=== PATIENT | female | born 1960 | race Caucasian/White ===

== ENCOUNTER → 2020-03-05 | Outpatient (CLI) | payer MEDICARE, MEDICAID ==
[~2020-03-05] MED LIST: AMAN100T PO; COPA1INJ SC; FAMO20TA PO; LISI-538 PO; LORA-674 PO; MIRT1TAB16 PO; OMEP10CASR PO; PRAM0.754 PO; SIMV40TA20 PO
== END ==
LOC: M LABSMTC 09:56
PROVIDERS: ATTEND Anesthesiology
DX: Z01.818 Encounter for other preprocedural examination (principal); Z11.59 Encounter for screening for other viral diseases
CPT/HCPCS: C9803; U0002

== ENCOUNTER 2020-03-07 06:04 | Day surgery (SDC) | payer MEDICARE, MEDICAID ==
[~2020-03-07] VITALS: Ht 165.1 cm; Wt 73.7 kg
[~2020-03-07 06:04] MED LIST changes: +ACETAMINOPHEN 325 MG TAB PO PRN
[2020-03-07] MEDS ORDERED: LIDOCAINE 3.5 % 1ML OPHTH TOPICAL GEL OU ONE (07:00)
[2020-03-07] MEDS ORDERED: PROPARACAINE 0.5% OPHTH SOL 15ML OD PRN (07:01)
[2020-03-07] MEDS ORDERED: MIDAZOLAM INJ 2MG/2ML VIAL (J2250 PER 1MG) As Ordered ONE (07:08)
[2020-03-07] MEDS ORDERED: fentaNYL 100 MCG/2 ML INJECTION (J3010) As Ordered ONE (07:08)
[2020-03-07] MEDS ORDERED: GENTAMICIN SULF 80MG/2ML VIAL As Ordered ONE (07:09)
[2020-03-07] MEDS ORDERED: TOBRADEX OPHTH OINT 3.5 GM As Ordered ONE (07:09)
[2020-03-07] MEDS ORDERED: LIDOCAINE 1% SDV 5ML VIAL As Ordered ONE (07:09)
[2020-03-07] MEDS ORDERED: POVIDONE-IODINE 5% OPHTH PREP SOL 30ML As Ordered ONE (07:09)
[2020-03-07] MEDS ORDERED: LIDOCAINE 2% 100MG/5ML SDV (FOR ANES.) As Ordered ONE (07:31)
[2020-03-07] MEDS ORDERED: propofoL 200 MG/20 ML VIAL As Ordered ONE (07:31)
[2020-03-07] MEDS ORDERED: KETOROLAC 0.5% OPHTH SOLN OD ONE (09:15)
[2020-03-07] MEDS ORDERED: AcetaZOLAMIDE 500 MG ER CAP PO ONE (09:15)
[2020-03-07] MEDS ORDERED: TRIMETHOBENZAMIDE 300 MG CAP PO PRN (09:15)
[2020-03-07 09:24] VITALS: BP 104/58
--- NOTE | 2020-03-09 06:59 | RO ---
DATE OF PROCEDURE: 03/07/2020 PREOPERATIVE DIAGNOSIS: Rubeotic glaucoma right eye. POSTOPERATIVE DIAGNOSIS: Rubeotic glaucoma right eye. PROCEDURE PERFORMED: Insertion of Ahmed valve right eye. SURGEON: Ana Quispe MD PROGRAM PROFESSIONAL: ANESTHESIA: Topical with sedation. The valve used was an Ahmed valve FP7. DESCRIPTION OF PROCEDURE: Patient was prepped and draped in usual fashion. Lid speculum was placed between the lids. At 12-o'clock position, a #7-0 Vicryl was used to make a bridle suture. The eye was downward tractioned to expose the superior temporal quadrant. The conjunctiva was opened from approximately the 3- to 12-o'clock position, and then all bleeding was controlled with Wet-Field cautery. A blunt dissection was made with the Rodney scissors to create a pocket for the valve. 1% nonpreserved lidocaine was injected into the pocket area and behind the eye for additional anesthesia. The valve was primed and then placed into the created pocket. The valve was easily placed approximately 8.5 mm posterior to the limbus. The valve was then tacked down using two #8-0 nylon sutures through the partial thickness of the sclera through the eyelets on the valve. The tube was then cut to the proper length and created with a bevel up. Approximately 2.5 mm posterior to the limbus, a 23-gauge needle was used to make a tract into the anterior chamber parallel to the iris. The tube was placed through this pre-made tract and easily entered the anterior chamber and was in excellent position. A piece of preserved sclera was then cut to proper size and placed over the tube after one #9-0 nylon suture was used to hold the tube loosely in place. The graft was placed over the tube, covering it in its entirety to the limbus, and then tacked down using two #8-0 Vicryl sutures. The conjunctiva was pulled back over the site and was easily closed using two #8-0 Vicryl sutures running on each side. The bridle suture was removed. TobraDex ointment was applied, and a patch and shield were placed. The patient tolerated procedure well and went to recovery room in stable condition.
== END 2020-03-07 09:30 | disposition home or self-care (01) ==
LOC: M SDC 06:04
PROVIDERS: ATTEND Ophthalmology
DX: H40.89 Other specified glaucoma (principal); G35 Multiple sclerosis; Z85.41 Personal history of malignant neoplasm of cervix uteri; Z88.8 Allergy status to other drugs, medicaments and biological substances; Z79.899 Other long term (current) drug therapy; Z87.891 Personal history of nicotine dependence
CPT/HCPCS: 66183; C1762; J1580; J2250; J3010; V2785

== ENCOUNTER → 2021-08-02 | Outpatient (REF) | payer MEDICARE, MEDICAID ==
[~2021-08-02] MED LIST changes: -ACETAMINOPHEN 325 MG TAB PO PRN; -LISI-538 PO; +LISI20TA33 PO
[2021-08-02 18:14] LABS: APPEARANCE, URINE CLOUDY (CLEAR); BACTERIA, URINE AUTO NEGATIVE (NEGATIVE); BILIRUBIN, URINE AUTO NEGATIVE (NEGATIVE); BLOOD, URINE BLOOD NEGATIVE (NEGATIVE); COLOR, URINE YELLOW (YELLOW); GLUCOSE, URINE (UA) AUTO NEGATIVE (NEGATIVE); KETONE, URINE AUTO NEGATIVE (NEGATIVE); LEUKOCYTE ESTERASE, URINE AUTO 3+ (NEGATIVE); NITRITE, URINE AUTO POSITIVE (NEGATIVE); PROTEIN, URINE AUTO NEGATIVE (NEGATIVE); RBC, URINE AUTO 5 /HPF (0-3); SQUAMOUS EPITHELIAL CELL UR AU 0 /HPF (0-6); UROBILINOGEN, URINE AUTO 0.2 mg/dL (0.0-2.0); WBC, URINE AUTO TNTC /HPF (0-3)
== END ==
LOC: M SMT 16:50
PROVIDERS: ATTEND Urology
DX: N39.41 Urge incontinence (principal)

== ENCOUNTER → 2021-10-02 | Outpatient (REF) | payer MEDICARE, MEDICAID ==
[2021-10-02 17:44] LABS: APPEARANCE, URINE TURBID (CLEAR); BACTERIA, URINE AUTO NEGATIVE (NEGATIVE); BILIRUBIN, URINE AUTO NEGATIVE (NEGATIVE); BLOOD, URINE BLOOD NEGATIVE (NEGATIVE); COLOR, URINE YELLOW (YELLOW); GLUCOSE, URINE (UA) AUTO NEGATIVE (NEGATIVE); KETONE, URINE AUTO TRACE mg/dL (NEGATIVE); LEUKOCYTE ESTERASE, URINE AUTO 3+ (NEGATIVE); MUCUS, URINE SMALL (NEGATIVE); NITRITE, URINE AUTO POSITIVE (NEGATIVE); PROTEIN, URINE AUTO 1+ mg/dL (NEGATIVE); RBC, URINE AUTO 10 /HPF (0-3); SPECIFIC GRAVITY URINE AUTO 1.023 (1.002-1.035); SQUAMOUS EPITHELIAL CELL UR AU 4 /HPF (0-6); WBC, URINE AUTO TNTC /HPF (0-3)
== END ==
LOC: M SMT 16:40
PROVIDERS: ATTEND Urology
DX: N32.81 Overactive bladder (principal); Z79.899 Other long term (current) drug therapy
CPT/HCPCS: 51798; 81001; 87088; 87186; G0463

== ENCOUNTER → 2025-01-06 | Outpatient (REF) | payer MEDICARE, MEDICAID ==
[~2025-01-06] MED LIST changes: +AMAN100T4 PO; +LORA-1041 PO; -LORA-674 PO; +OMEP-173 PO; +PRAM0.5T4 PO; +VIBE75TA PO
[2025-01-06 19:03] LABS: APPEARANCE, URINE CLOUDY (CLEAR); BACTERIA, URINE AUTO 1+ (NEGATIVE); BILIRUBIN, URINE AUTO NEGATIVE (NEGATIVE); BLOOD, URINE BLOOD NEGATIVE (NEGATIVE); COLOR, URINE YELLOW (YELLOW); GLUCOSE, URINE (UA) AUTO NEGATIVE (NEGATIVE); KETONE, URINE AUTO NEGATIVE (NEGATIVE); LEUKOCYTE ESTERASE, URINE AUTO 3+ (NEGATIVE); NITRITE, URINE AUTO NEGATIVE (NEGATIVE); PROTEIN, URINE AUTO 1+ mg/dL (NEGATIVE); RBC, URINE AUTO 4 /HPF (0-3); SPECIFIC GRAVITY URINE AUTO 1.015 (1.002-1.035); SQUAMOUS EPITHELIAL CELL UR AU 0 /HPF (0-6); UROBILINOGEN, URINE AUTO 0.2 mg/dL (0.0-2.0); WBC, URINE AUTO TNTC /HPF (0-3)
== END ==
LOC: M SMT 17:06
PROVIDERS: ATTEND Nurse Practitioner Family
DX: N39.0 Urinary tract infection, site not specified (principal)

== ENCOUNTER 2025-06-04 15:56 | Emergency (ER) | payer MEDICARE, MEDICAID ==
[~2025-06-04] VITALS: Ht 165.1 cm; Wt 75.0 kg
[~2025-06-04 15:56] MED LIST changes: +AMAN100T19 PO; -AMAN100T4 PO
[2025-06-04 16:50] LABS: BASO # 0.1 10^3/uL (0.0-0.2); BASO % 0.5 % (0.0-1.0); EOS # 0.3 10^3/uL (0.0-0.5); EOS % 3.2 % (0.0-3.0); LYMPH # 3.0 10^3/uL (1.5-5.0); LYMPH % 33.0 % (24.0-44.0); MONO # 0.8 10^3/uL (0.0-0.8); MONO % 8.8 % (2.0-8.0); NEUTROPHILS # 5.0 10^3/uL (1.5-8.5); NEUTROPHILS % 54.1 % (36.0-66.0); PLATELET COUNT, AUTOMATED 272 10^3/uL (150-450)
[2025-06-04 17:17] LABS: CALCIUM LEVEL 9.8 MG/DL (8.3-10.6); CARBON DIOXIDE LEVEL 27.0 MMOL/L (20-31); CHLORIDE LEVEL 108.0 MMOL/L (98-107); CREATININE FOR GFR 0.98 MG/DL (0.55-1.30); GLOMERULAR FILTRATION RATE 63.7 (>45); MAGNESIUM LEVEL 2.2 MG/DL (1.8-2.4); POTASSIUM SERUM 4.8 MMOL/L (3.5-5.1); SODIUM LEVEL 143.0 MMOL/L (136-145)
[2025-06-04 17:20] LABS: FREE T4 0.98 NG/DL (0.89-1.76)
[2025-06-04 19:41] VITALS: BP 181/73; TEMP 98; O2SAT 98
== END 2025-06-04 19:47 | disposition short-term general hospital (02) ==
LOC: M ED 15:56
DX: T82.110A Breakdown (mechanical) of cardiac electrode, initial encounter (principal); I10 Essential (primary) hypertension; G35 Multiple sclerosis; E78.5 Hyperlipidemia, unspecified; Z88.8 Allergy status to other drugs, medicaments and biological substances; Z79.899 Other long term (current) drug therapy

== ENCOUNTER → 2025-07-31 | Outpatient (REF) | payer MEDICARE, MEDICAID ==
[~2025-07-31] MED LIST changes: -AMAN100T19 PO; +AMAN100T8 PO
[2025-07-31 13:56] LABS: AMORPHOUS SEDIMENT SMALL (NEGATIVE); APPEARANCE, URINE CLOUDY (CLEAR); BACTERIA, URINE AUTO 2+ (NEGATIVE); BILIRUBIN, URINE AUTO NEGATIVE (NEGATIVE); BLOOD, URINE BLOOD 1+ (NEGATIVE); GLUCOSE, URINE (UA) AUTO NEGATIVE (NEGATIVE); KETONE, URINE AUTO NEGATIVE (NEGATIVE); LEUKOCYTE ESTERASE, URINE AUTO 3+ (NEGATIVE); MUCUS, URINE SMALL (NEGATIVE); NITRITE, URINE AUTO NEGATIVE (NEGATIVE); PROTEIN, URINE AUTO 1+ mg/dL (NEGATIVE); RBC, URINE AUTO 9 /HPF (0-3); SPECIFIC GRAVITY URINE AUTO 1.013 (1.002-1.035); SQUAMOUS EPITHELIAL CELL UR AU 6 /HPF (0-6); UROBILINOGEN, URINE AUTO 0.2 mg/dL (0.0-2.0); WBC, URINE AUTO TNTC /HPF (0-3)
== END ==
LOC: M SMT 13:07
PROVIDERS: ATTEND Nurse Practitioner Family
DX: N39.0 Urinary tract infection, site not specified (principal)